=== PATIENT | male | born 1970 | race Caucasian/White ===

== ENCOUNTER 2016-06-15 17:28 | Emergency (ER) | payer MEDICARE ==
--- NOTE | 2016-06-18 13:45 | ER ---
ADMIT: 06/15/2016 RM/LOC: ER [facility] MR#: [id number] [address] [id number] CHRISTINA ARCEO [address] [place] [address] Emergency Room Report SEX: M AGE: 45 : 1970 DATE: 06/15/2016 HISTORY OF PRESENT ILLNESS: The patient is a 45-year-old male, who presents to emergency room with left lower jaw pain. He says he chews tobacco. 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 He does not feel like a TMJ. He denies any fever, but says that the discomfort is underneath the jaw. Physical examination is otherwise within normal limits. I did send him to do a CT of neck to rule out Prinzmetal variant angina or neck abscess and came back with a consolidated abscess right underneath the tooth. No spread of the infection down his neck. He was given a prescription for clindamycin and [place], given the medication to start him on the antibiotic in the emergency room and advised to follow up with PCP and/or dentist as soon as possible. CLINICAL DIAGNOSIS: Dental abscess. YOVANI Jacome / Marc Angelo MD / alyssa JOB #: [id number] CC: Marc Angelo MD, Attending Physician UNKNOWN, Family Physician
== END 2016-06-15 20:28 | disposition home or self-care (01) ==
LOC: ER 17:28
DX: K04.7 Periapical abscess without sinus (principal); F17.210 Nicotine dependence, cigarettes, uncomplicated; Z88.2 Allergy status to sulfonamides